=== PATIENT | female | born 1975 | race Caucasian/White ===

== ENCOUNTER 2022-02-17 10:44 | Inpatient (IN) | payer BC ==
[~2022-02-17] VITALS: Ht 167.6 cm; Wt 64.4 kg
[2022-02-17] MEDS ORDERED: VALS40TA12 PO (11:07)
[2022-02-17] MEDS ORDERED: CHLORDIAZEPOXIDE HCL 25 MG CAPSULE ONE (11:12)
[2022-02-17] MEDS ORDERED: LORAZEPAM INJ 2 MG/ML VIAL ONE (11:12)
[2022-02-17 11:24] LABS: BASOPHILS % (AUTO) 0.5 % (0.0-2.0); EOSINOPHILS % (AUTO) 0.5 % (0.0-6.0); HEMATOCRIT 45 % (33-45); HEMOGLOBIN 15.1 g/dL (11.5-14.8); LYMPHOCYTES # (AUTO) 1.2 K/uL (0.8-4.8); MEAN CORPUSCULAR HGB CONC 34 g/dl (31.0-36.0); MEAN CORPUSCULAR VOLUME 109 fL (82-100); MONOCYTES # (AUTO) 0.9 K/uL (0.1-1.30); MONOCYTES % (AUTO) 18.2 % (2.0-12.0); NEUTROPHILS # (AUTO) 2.7 K/uL (1.8-8.9); NEUTROPHILS % (AUTO) 55.8 % (43.0-81.0); PLATELET COUNT (AUTO) 170 K/uL (150-450); WHITE BLOOD COUNT (AUTO) 4.8 K/uL (4.3-11.0)
[2022-02-17] MEDS ORDERED: IV NS 0.9% 1,000 ML IV ONE (11:30)
[2022-02-17] MEDS ORDERED: CHLORDIAZEPOXIDE HCL 25 MG CAPSULE PO ONE (11:30)
[2022-02-17] MEDS ORDERED: LORAZEPAM INJ 2 MG/ML VIAL IV ONE (11:30)
--- NOTE | 2022-02-17 11:35 | NUR ---
IV LINE ESTABLISHED ON R HAND #20.
--- NOTE | 2022-02-17 11:38 | NUR ---
PT UNABLE TO PROVIDE URINE AT THIS TIME.
--- NOTE | 2022-02-17 11:45 | NUR ---
CALLED RADIOLOGY TO PICKUP PT FOR CT
[2022-02-17 11:50] LABS: CALCIUM, SERUM 9.6 mg/dL (8.5-10.1); CARBON DIOXIDE 22 mmol/L (21-32); CHLORIDE 95 mmol/L (98-107); CREATININE 1.1 mg/dL (0.6-1.3); GLUCOSE 205 mg/dL (74-106); POTASSIUM 3.2 mmol/L (3.5-5.1); SODIUM SERUM 137 mmol/L (136-145); UREA NITROGEN, BLOOD 4 mg/dL (7-18)
--- NOTE | 2022-02-17 11:51 | NUR ---
PT TAKEN TO RADIOLOGY
[2022-02-17 11:58] LABS: ALANINE AMINOTRANSFERASE 132 U/L (12-78); ALCOHOL, BLOOD < 3 mg/dL (0-0); ALKALINE PHOSPHATASE 108 U/L (46-116); ASPARTATE AMINOTRANSFERASE 264 U/L (15-37); BILIRUBIN,DIRECT 0.6 mg/dL (0.0-0.2); BILIRUBIN,TOTAL 1.8 mg/dL (0.2-1.0); TOTAL PROTEIN, SERUM 8.1 g/dL (6.4-8.2)
--- NOTE | 2022-02-17 12:02 | NUR ---
PT RETURNED FROM RADIOLOGY
--- NOTE | 2022-02-17 12:09 | NUR ---
TECH AT BEDSIDE FOR EKG
--- NOTE | 2022-02-17 12:16 | NUR ---
COVID SWAB COLLECTED AND SENT TO LAB
[2022-02-17] MEDS ORDERED: POTASSIUM CHLORIDE 20 MEQ TAB.PRT.SR PO ONE ×2 (12:30→13:23)
[2022-02-17] MEDS ORDERED: ALBU18HF2 IH (12:49)
[2022-02-17] MEDS ORDERED: ACET-868 PO (12:49)
[2022-02-17] MEDS ORDERED: COLC0.6C3 PO (12:49)
[2022-02-17 13:22] LABS: BILIRUBIN,URINE NEGATIVE (NEGATIVE); COLOR,URINE YELLOW (YELLOW); LEUKOCYTE ESTERASE ,URINE NEGATIVE (NEGATIVE); NITRITE, URINE NEGATIVE (NEGATIVE); PH,URINE 7.5 (5.0-8.0); PROTEIN,URINE 100 mg/dl (NEGATIVE); UGLUCOSE NEGATIVE (NEGATIVE); UROBILINOGEN,URINE 0.2 EU/dL (0.2)
[2022-02-17] MEDS ORDERED: Magnesium 1GM/D5W 100ML PREMIX 200 ML IV ONE (13:23)
[2022-02-17] MEDS: Magnesium 1GM/D5W 100ML PREMIX 100 ML IV SCH ×2 (13:30→14:27)
--- NOTE | 2022-02-17 13:30 | NUR ---
MAGNESIUM IV BAG#1 ADMINISTERED, CURRENTLY INFUSING.
[2022-02-17 14:21] LABS: BACTERIA,URINE None seen /HPF (None Seen); SQUAMOUS EPITHELIAL CELL,UR Rare /HPF (None Seen); WBC,URINE NONE SEEN /HPF (0-3)
--- NOTE | 2022-02-17 14:30 | NUR ---
MAGNESIUM BAG #2 ADMINISTERED, CURRENTLY INFUSING
--- NOTE | 2022-02-17 14:40 | NUR ---
ANTONELLA 315-1 Addendum: 02/17/22 at 1441 by SUELLEN 315-2 [place]
--- NOTE | 2022-02-17 14:42 | NUR ---
MANOLO BAIRD, WILL CALL BACK FOR REPORT.
--- NOTE | 2022-02-17 15:06 | NUR ---
PT REPORT GIVEN TO MANOLO BAIRD
[2022-02-17] MEDS ORDERED: COLCHICINE 0.6 MG TABLET PO PRN (15:30)
[2022-02-17] MEDS ORDERED: MAGNESIUM HYDROXIDE 30 ML UDC PO PRN (15:30)
[2022-02-17] MEDS ORDERED: ACETAMINOPHEN 325 MG TABLET PO PRN (15:30)
[2022-02-17] MEDS ORDERED: Z GUARD REMEDY 4 OZ OINT TP PRN (15:30)
[2022-02-17] MEDS ORDERED: Folic acid 1 MG in IV D5W 50 ML IV SCH (15:30)
[2022-02-17] MEDS ORDERED: MAG HYDROX/AL HYDROX/SIMETH 30 ML UDC PO PRN (15:30)
[2022-02-17] MEDS ORDERED: Thiamine 100 MG in IV D5W 50 ML IV SCH (15:30)
[2022-02-17] MEDS ORDERED: ONDANSETRON HCL/PF 4 MG/2 ML VIAL IVP PRN (15:30)
--- NOTE | 2022-02-17 15:52 | NUR ---
PT TRANSFERRED TO UNIT VIA FRANCESCO ACLS PROTOCOL. WARM HANDOFF GIVEN TO RN ASSIGNED.
--- NOTE | 2022-02-17 16:00 | NUR ---
DIRECTOR LOSS PREVENTIONMERCURY CELL CLEANER NOTES: RECEIVED PT VIA GURNEY FROM ER STAFF. OBSERVED PT AMBULATED TO BED. PT IS ALERT/ORIENTED X4; ABLE TO VERBALIZE NEEDS. ON RA TOLERATING WELL, NO S/S OF SOB OR ACUTE DISTRESS AT THE MOMENT. VS WNL - BP- 139/99, HR- 100, RR- 20, O2 SAT - 96%. TELE MONITOR ATTACHED, READING SINUS TACH 101. IV ACCESS NOTED @ L HAND # 22, SL, PATENT AND FLUSHING WELL. PT ORIENTED TO UNIT AND STAFF. SAFETY MEASURES AND SEIZURE PRECAUTION IN PLACE. TABLE AND CALL LIGHT WITHIN REACH. ENCOURAGE PT TO USE CALL LIGHT FOR ASSISTANCE WITH AMBULATING, PT AGREED; WILL CONT WITH PLAN OF CARE THROUGHOUT SHIFT.
[2022-02-17] MEDS: FOLIC ACID 1 MG TABLET PO SCH (17:12)
[2022-02-17] MEDS: LORAZEPAM INJ 2 MG/ML VIAL IV SCH (17:12)
[2022-02-17] MEDS: THIAMINE HCL 100 MG TABLET PO SCH (17:12)
[2022-02-17] MEDS: IV NS 0.9% 1,000 ML IV PRN (18:58)
--- NOTE | 2022-02-17 19:30 | NUR ---
RN OPENING NOTE PATIENT AWAKE IN BED. A/OX4. NO S/S OF DISTRESS, BREATHING WITHOUT DIFFICULTY ON ROOM AIR. R-HAND #20 INTACT AND PATENT W/ NS 75ML/HR. TELE READS ST 106 (PATIENT'S CURRENT BASELINE). SAFETY MEASURES IN PLACE: BED LOCKED AND IN LOWEST POSITION, RAILS UP X2, CALL LOVETT WITHIN REACH. WILL CONTINUE TO MONITOR PATIENT.
[2022-02-17 20:00] VITALS: BP 150/104
--- NOTE | 2022-02-17 20:02 | NUR ---
ARMORER TECHNICIAN CLOSING NOTES: PT ASLEEP, EASILY ROUSED. NO S/S OF SOB AND ACUTE DISTRESS NOTED. TELE MONITOR READING SINUS TACHY 104BPM. IVF STARTED- NS @ 75ML/HR. IV ACCESS AT R HAND # 22, PATENT.SAFETY MEASURES AND SEIZURE PRECAUTIONS IN PLACE, CALL LIGHT AND TABLE WITHIN REACH ENDORSED TO PM SHIFT.
[2022-02-17 22:19] LABS: BAND % (MANUAL) 1 % (0.0-5.0); EOSINOPHILS % (MANUAL) 1 % (0-4); LYMPHOCYTES % (MANUAL) 23 % (16-48); MONOCYTES % (MANUAL) 17 % (0-11.0); NEUTROPHILS % (MANUAL) 58 (42-76)
[2022-02-18] VITALS: BP 144/99
--- NOTE | 2022-02-18 01:54 | NUR ---
RN NOTE PATIENT, DUE TO THE WAY SHE WAS SLEEPING IN BED, HAD HER IV DISLODGED. ALL COMPONENTS ACCOUNTED FOR - CATH INCLUDED. PRESSURE DRESSING APPLIED. NEW IV SUCCESSFULLY INSERTED LAC #20. IVF RESUMED. PATIENT STABLE; WILL CONTINUE TO MONITOR PATIENT.
[2022-02-18 04:00] VITALS: BP 129/99
[2022-02-18 06:56] LABS: BASOPHILS % (AUTO) 0.5 % (0.0-2.0); EOSINOPHILS % (AUTO) 2.6 % (0.0-6.0); HEMATOCRIT 40 % (33-45); HEMOGLOBIN 13.5 g/dL (11.5-14.8); LYMPHOCYTES # (AUTO) 1.6 K/uL (0.8-4.8); LYMPHOCYTES % (AUTO) 30.9 % (20.0-44.0); MEAN CORPUSCULAR HGB CONC 34 g/dl (31.0-36.0); MEAN CORPUSCULAR VOLUME 109 fL (82-100); MONOCYTES # (AUTO) 0.7 K/uL (0.1-1.30); MONOCYTES % (AUTO) 13.7 % (2.0-12.0); NEUTROPHILS # (AUTO) 2.6 K/uL (1.8-8.9); NEUTROPHILS % (AUTO) 52.3 % (43.0-81.0); PLATELET COUNT (AUTO) 132 K/uL (150-450); RED BLOOD CELL COUNT(AUTO) 3.66 MIL/uL (4.0-5.2); WHITE BLOOD COUNT (AUTO) 5.1 K/uL (4.3-11.0)
--- NOTE | 2022-02-18 07:27 | NUR ---
RN CLOSING NOTE PATIENT ASLEEP IN BED. A/OX4. NO S/S OF DISTRESS, BREATHING WITHOUT DIFFICULTY ON ROOM AIR. LAC #20 INTACT AND PATENT W/ NS 75ML/HR. TELE READS SR 89. SAFETY MEASURES IN PLACE: BED LOCKED IN PLACE AND AT LOWEST POSITION, RAILS UP X2, CALL LOVETT WITHIN REACH. WILL ENDORSE TO NEXT SHIFT FOR ALEC.
--- NOTE | 2022-02-18 07:30 | NUR ---
RN Receiving Report. Patient AOx4, able to express her own concerns. Patient is sitting up states she is feeling better. Patient with multiple face bruises states she fell on her face. Patient shows no signs of distress or discomfort. Introduced myself and discussed plan of care with patient, patient agrees. All safety precautions taken, call light and table within reach, bed at lowest position.
[2022-02-18 07:44] LABS: ALBUMIN 3.3 g/dL (3.4-5.0); BILIRUBIN,TOTAL 1.4 mg/dL (0.2-1.0); CALCIUM, SERUM 8.9 mg/dL (8.5-10.1); CREATININE 0.8 mg/dL (0.6-1.3); MAGNESIUM 2.1 mg/dL (1.8-2.4); PHOSPHORUS 2.7 mg/dL (2.5-4.9); POTASSIUM 3.4 mmol/L (3.5-5.1); TOTAL PROTEIN, SERUM 6.8 g/dL (6.4-8.2)
[2022-02-18] MEDS: THIAMINE HCL 100 MG TABLET PO SCH (08:36)
[2022-02-18] MEDS: LORAZEPAM INJ 2 MG/ML VIAL IV SCH ×2 (08:36→16:14)
[2022-02-18] MEDS: LOSARTAN POTASSIUM 25 MG TABLET PO SCH (08:36)
[2022-02-18] MEDS: FOLIC ACID 1 MG TABLET PO SCH (08:36)
[2022-02-18] MEDS ORDERED: POTASSIUM CHLORIDE 20 MEQ TAB.PRT.SR PO SCH (09:00)
[2022-02-18 09:03] VITALS: BP 169/108
[2022-02-18 13:18] LABS: BAND % (MANUAL) 7 % (0.0-5.0); EOSINOPHILS % (MANUAL) 1 % (0-4); LYMPHOCYTES % (MANUAL) 35 % (16-48); MONOCYTES % (MANUAL) 12 % (0-11.0); NEUTROPHILS % (MANUAL) 45 (42-76)
[2022-02-18 13:42] VITALS: BP 150/98
--- NOTE | 2022-02-18 14:36 | NUR ---
SS CONSULT REQUESTED FOR ALCOHOL USE DISORDER, SW will follow up at a later time.
[2022-02-18 16:07] VITALS: BP 140/94
--- NOTE | 2022-02-18 17:00 | NUR ---
SS note: SW was notified by CM that the pt. stated she has an adult son diagnosed with Autism at home alone and SW met with the pt. to discuss her son's safety. Per pt., her son is an adult and he is very high functioning and completely independent. SW offered to call friend or police to do wellness check and pt. reiterated that it is not needed. Pt. states she is texting with him and he has food at home and is safe to be alone. Noted.
--- NOTE | 2022-02-18 17:00 | NUR ---
SS consult: SS Consult requested for alcohol use disorder. The pt. is a 46-year-old female patient who came in for seizure at home witnessed by family. Upon SS consult, the pt. is Alert & Oriented x 4 and makes good eye contact. The pt. appears well-groomed with depressed mood & flat affect. Pt.s speech is WNL. Pt. remained calm & cooperative throughout interview. Pt. denies SI/HI and denies hallucinations. Pt. denies any previous diagnosis of mental illness. LES explored pt.s living situation. Patient states she lives at home [[id number] [facility] [address]; [phone]] with her adult son. SW explored pt.s drug & ETOH use. Pt. states she was having 2-3 mixed drinks with liquor daily. Pt. states she stopped drinking alcohol cold turkey and her daughter called the paramedics after she witnessed the pt. having a seizure in which she fell and hit her face causing bruising in both eyes and chin. Pt. denes drug use. LSE provided psychoeducation on alcohol dependence and offered referrals to rehab and pt. states she was interested in attending AA meetings if she cannot do it alone. Pt. stated she independent with ambulation and all her ADLs. Pt. states since she stopped drinking she has been feeling unbalance in her feet and has relayed this to the MD. LES explored pt.s support system. Pt. states her family are her support system and she is currently employed. Plan: Per pt. she would like to return back home [[address] [address] [facility] [address]; [phone]] when ready to discharge. LES provided pt. wit the following addiction resources and the pt. accepted them: ADDICTION RESOURCES For Drugs and Alcohol [facility] sober living Referrals For Rehabilitation once sober Address:[address] [place] [address] [facility] Rehabilitation Program [address] [place] [address] Detox/residential [facility] Substance Abuse Helpline ([facility]) Outpatient, residential treatment, recovery support for youth/adults [facility] www.[facility].Z[facility]Pay [facility] Teen programs for drug/alcohol education and support Graciela Serna [place]. Program for adults, sliding scale provides support and education [facility] www.Tweet CategoryArena Pharmaceuticalsation.org [place]; Detox/residential treatment programs; transition to sober living [facility] www.cri-help.org [place]; Outpatient and residential treatment programs; transition to sober living [facility] TEL: [phone] [facility] [place] [facility] Paulette Ramos; Outpatient education and supportive programs for teens and adults [facility] www.[facility].org [facility]; Residential treatment and work program for females only [facility] www.[facility].org [place]: Outpatient/residential treatment program for teens and young adults [facility] www.[facility].org [facility] Detox, inpatient, outpatient for adults and youth [facility]. [place]; Outpatient programs and referrals to community residential programs. Alcoholics Anonymous -SFV information and meeting and scheduleswww.aa-intergroup.org Wg-Iljt-Gcuxpik https://al-anon.org/ Reserve support groups for family of alcoholics. Marijuana Anonymous www.madistrict6.org -SFV listing of meetings Narcotics Anonymous www.na.org SOBER LIVING RESOURCES [facility] www.soberhousing.net A non-profit agency that provides resources to recovery and sober living homes throughout [facility] Sober Living Homes: A Work in ProgressPavan Ghassan Serna [place] [facility], [place] [facility] So[facility] Living Homes: [facility] [address] [place], [place] [facility] Sober Living Homes: [facility] Counsel[facility]--Outpatient [facility] [address] [place] [address] (Specializes in in-depth psychotherapy for emotional distress: anxiety, depression, interpersonal conflicts, life transitions, childhood abuse) [facility] [address] [place] [address] (Assist with solving problem marital difficulties, separation & divorce, aging parents, & grief, chronic & terminal illness) [facility] [address] [place] [address] (Deal with loss & grief, anxiety, marital difficulties) Homebound/Mental Health Services [address], [address] [place] [address] (Provide in-home mental services to people who are incapable of leaving their homes) [facility]eds of the Elderly Senior Service/Resource Center [address] [place] [address] [facility] [address] [place], [place] [id number] Mental Health Services [facility] [address] [place] [address] Services: Outpatient therapy for children, teens, young adults, adults, older adults, and families; Psychiatric services, medication support Psychiatric Outpatient Services [facility] Partial Hospitalization and Intensive Outpatient Program (Managed Care and [place] Only)[address] [address] [facility]. [facility] [phone] [facility] Partial Hospitalization and Outpatient [id number] [place], [place] [phone] PAULETTE ALISA [facility] Health Center [id number] [place], [place] [phone] [facility] Richard Partial Hospitalization and Outpatient Eitvhsg29206 Gladys Hyman, [phone] Crisis and Hotline Telephone Numbers 24-Hour service unless stated [place] Crisis Hotlines: [facility] Mental Health/Crisis Line........[phone] Suicide Prevention Center (24 Hours).......[phone] Suicide Prevention Crisis Center.......[phone] (24 Hours) Assaults Against Women Hotline.........927.984.7095 (24 Hours -- [facility]) Women and Children Crisis [facility]...........[phone] (24 Hours) Child Abuse Hotline............575.404.7234 [facility] Childrens Services [facility] (24 Hours)..........[phone] Alcoholics Anonymous (24 Hours)..........[phone] Cocaine Anonymous (24 Hours)............782.235.7769 Narcotics Anonymous (24 Hours)..........[phone] [address] Garcia [facility] [address], [place] [address]
[2022-02-18] MEDS ORDERED: LEVETIRACETAM (500MG) 1,000 MG in IV NS 0.9% 100 ML IV ONE (18:30)
--- NOTE | 2022-02-18 18:35 | NUR ---
RN Closing Report. Patient AOx4 able to express her own concerns. Patient remained safe throughout shift, all safety precautions taken. Monitored patient and implemented seizure precautions throughout shift. No incidents to report. Patient states she is normally shake and with elevated heart rate. Educated patient on fall precautions since patient insists in using the restroom. Asked patient to call when she needs to use the restroom for assistance. Call light and table within reach, bed at lowest position. Will endorse report to night nurse for continuity of care.
--- NOTE | 2022-02-18 19:31 | NUR ---
brook rn opening received patient a/ox4. no s/s of apparent distress on room air. denies any pain at this time. ambulates with steady gait. tele monitor reading sinus rhythm with 78bpm. l. hand #20g running ns @75mls/hr. call light within reach and encouraged with the use of call light. safety in place. will continue with the plan of care for patient.
--- NOTE | 2022-02-18 19:45 | NUR ---
noc rn note Keppra hanged late as endorsed by the am shift.
[2022-02-18 20:43] VITALS: BP 148/109
[2022-02-19 00:05] VITALS: BP 136/91
[2022-02-19 00:07] VITALS: BP 136/91
[2022-02-19] MEDS: IV NS 0.9% 1,000 ML IV PRN (03:09)
[2022-02-19 04:32] VITALS: BP 150/97
[2022-02-19 07:02] LABS: CALCIUM, SERUM 8.5 mg/dL (8.5-10.1); CREATININE 0.7 mg/dL (0.6-1.3); POTASSIUM 3.4 mmol/L (3.5-5.1)
--- NOTE | 2022-02-19 07:07 | NUR ---
noc rn closing note patient in bed sitting and eating snacks. no s/s of apparent distress on room air. denies pain at this time. tele monitor reading sinus with 83bpm. all needs attended. all scheduled medications administered. safety kept in place the whole shift. will endorse to morning shift rn for continuity of care.
--- NOTE | 2022-02-19 07:15 | NUR ---
ELECTRIC DISTRIBUTION CHECKER OPENING NOTE PATIENT SITTING ON TOILET, A/O X 3, ABLE TO MAKE NEEDS KNOWN, TOLERATING WELL ON ROOM AIR WITH NO S/S RESPIRATORY DISTRESS. NO COMPLAINTS OF PAIN OR DISCOMFORT AT THIS TIME. TELE MONITOR DISCONNECTED AT THIS TIME, WILL REATTACH. SAFETY MEASURES IN PLACE: BED IN LOWEST LOCKED POSITION, SIDE RAILS UP X 2, CALL LIGHT WITHIN REACH. WILL CONTINUE TO MONITOR. Addendum: 02/19/22 at 0759 by NANCI DEL VALLE RN L AC #[address] WITH NS INFUSING @ 75 ML/HR
[2022-02-19 08:39] VITALS: BP 156/96
[2022-02-19] MEDS ORDERED: LEVE250T2 PO (08:53)
[2022-02-19] MEDS: FOLIC ACID 1 MG TABLET PO SCH (08:55)
[2022-02-19] MEDS: LOSARTAN POTASSIUM 25 MG TABLET PO SCH (08:55)
[2022-02-19] MEDS: THIAMINE HCL 100 MG TABLET PO SCH (08:55)
[2022-02-19] MEDS: LORAZEPAM INJ 2 MG/ML VIAL IV SCH (08:56)
[2022-02-19] MEDS ORDERED: LEVETIRACETAM (250 MG) 250 MG TABLET PO SCH (09:00)
[2022-02-19] MEDS ORDERED: POTASSIUM CHLORIDE 20 MEQ TAB.PRT.SR PO ONE (09:00)
[2022-02-19 12:00] VITALS: BP 136/98
--- NOTE | 2022-02-19 13:30 | NUR ---
NEEDLE LOOM TENDERWASH OIL PUMP OPERATOR HELPER NOTES PATIENT MADE AWARE OF MD DISCHARGE ORDERS AND INSTRUCTIONS. PATIENT VERBALIZED UNDERSTANDING OF MD DISCHARGE INSTRUCTIONS AND SIGNED MD DISCHARGE INSTRUCTIONS SHEET. PATIENT ALSO VERBALIZED POSSESSION OF ALL BELONGINGS AND SIGNED BELONGINGS LIST. IV LINE AND ID BAND REMOVED. TELE MONITOR REMOVED. PATIENT AMBULATED OFF OF UNIT ACCOMPANIED BY SELF.
== END 2022-02-19 14:00 | disposition home or self-care (01) | DRG 101 ==
LOC: ER 10:46 → TELE 15:22
PROVIDERS: ADMIT Internal Medicine; ATTEND Internal Medicine
DX: G40.509 Epileptic seizures related to external causes, not intractable, without status epilepticus (principal); F10.139 Alcohol abuse with withdrawal, unspecified; E87.6 Hypokalemia; E83.42 Hypomagnesemia; M10.9 Gout, unspecified; D69.6 Thrombocytopenia, unspecified; Y90.0 Blood alcohol level of less than 20 mg/100 ml; Z20.822 Contact with and (suspected) exposure to COVID-19; W19.XXXA Unspecified fall, initial encounter; Y92.9 Unspecified place or not applicable; S00.83XA Contusion of other part of head, initial encounter; Z79.51 Long term (current) use of inhaled steroids; I10 Essential (primary) hypertension; Z79.899 Other long term (current) drug therapy
CPT/HCPCS: 36415; 70450-TC; 70486-TC; 72125-TC; 73610-TC; 80048-TC; 80053-TC; 80076-TC; 81001; 83735-TC; 84100-TC; 84703-TC; 85025-TC; 87081-TC; C9803; G0378; G0480; J1953; J2060; J3475; J7030

== ENCOUNTER 2022-08-10 20:27 | Emergency (ER) | payer BC ==
[~2022-08-10] VITALS: Ht 167.6 cm; Wt 64.4 kg
[~2022-08-10 20:27] MED LIST: ACET-868 PO; ALBU18HF2 IH; COLC0.6C3 PO; LEVE250T2 PO; VALS40TA12 PO
--- NOTE | 2022-08-10 20:33 | NUR ---
PT BIBRA C/O "BEING SICK" X WEEKS. PER EMS, PT HAD SEIZURE DURING TRANSPORT. PT HAS HX OF SEIZURES AND IS POST ICTAL. PT AWAKE AND SPEAKING AAXO4 BREATHING EVENLY AND UNLABORED. PT HAS SEIZURE PRECAUTIONS AND ATTACHED TO MONITOR AND POX. WILL CONTINUE TO MONITOR.
--- NOTE | 2022-08-10 20:38 | NUR ---
BLOOD DRAWN AND SENT TO LAB
[2022-08-10] MEDS ORDERED: LEVETIRACETAM (500MG) 500 MG/5 ML VIAL IV ONE (20:48)
[2022-08-10] MEDS: LEVETIRACETAM (500MG) 1,000 MG in IV NS 0.9% 100 ML IV SCH (20:58)
[2022-08-10] MEDS: IV NS 0.9% 1,000 ML BAG IV ONE (20:58)
[2022-08-10 22:19] VITALS: BP 120/78
--- NOTE | 2022-08-10 22:19 | NUR ---
IV removed. Catheter intact and site benign. Pressure and 4x4 applied to site. No bleeding noted.Patient discharged to home in stable condition. Written and verbal after care instructions given. Patient verbalizes understanding of instruction.
== END 2022-08-10 22:19 | disposition home or self-care (01) ==
LOC: ER 20:28
DX: G43.909 Migraine, unspecified, not intractable, without status migrainosus (principal); I10 Essential (primary) hypertension; Z79.899 Other long term (current) drug therapy
CPT/HCPCS: 99284; 96365; 82962; J1953

== ENCOUNTER 2023-02-11 15:41 | Emergency (ER) | payer BC ==
[~2023-02-11] VITALS: Ht 167.6 cm; Wt 61.2 kg
[2023-02-11] MEDS ORDERED: LEVETIRACETAM (500MG) 1,000 MG in IV NS 0.9% 90 ML IV SCH (16:30)
[2023-02-11] MEDS ORDERED: PHENYTOIN EXTENDED RELEASE 100 MG CAPSULE PO ONE (16:30)
[2023-02-11 16:57] LABS: BASOPHILS % (AUTO) 0.3 % (0.0-2.0); EOSINOPHILS % (AUTO) 0.7 % (0.0-6.0); HEMATOCRIT 44 % (33-45); LYMPHOCYTES # (AUTO) 0.8 K/uL (0.8-4.8); LYMPHOCYTES % (AUTO) 13.9 % (20.0-44.0); MEAN CORPUSCULAR HEMOGLOBIN 34 PG (26.0-33.0); MEAN CORPUSCULAR HGB CONC 34 g/dl (31.0-36.0); MEAN CORPUSCULAR VOLUME 100 fL (82-100); MONOCYTES # (AUTO) 0.6 K/uL (0.1-1.30); MONOCYTES % (AUTO) 10.6 % (2.0-12.0); NEUTROPHILS # (AUTO) 4.4 K/uL (1.8-8.9); NEUTROPHILS % (AUTO) 74.5 % (43.0-81.0); PLATELET COUNT (AUTO) 145 K/uL (150-450); RED BLOOD CELL COUNT(AUTO) 4.37 MIL/uL (4.0-5.2); RED CELL DISTRIBUTION WIDTH 14.9 % (11.5-15.0); WHITE BLOOD COUNT (AUTO) 5.8 K/uL (4.3-11.0)
[2023-02-11 17:05] LABS: CALCIUM, SERUM 9.8 mg/dL (8.5-10.1); CREATININE 0.8 mg/dL (0.6-1.3); POTASSIUM 3.1 mmol/L (3.5-5.1)
[2023-02-11] MEDS ORDERED: IV NS 0.9% 1,000 ML BAG IV ONE (17:30)
[2023-02-11] MEDS ORDERED: VALS40TA12 PO (17:33)
[2023-02-11] MEDS ORDERED: LEVE250T2 PO (17:33)
[2023-02-11] MEDS ORDERED: AZIT1PAC PO (17:34)
[2023-02-11 21:28] VITALS: BP 142/95; TEMP 98.1; O2SAT 96
== END 2023-02-11 21:28 | disposition home or self-care (01) ==
LOC: ER 15:41
DX: R56.9 Unspecified convulsions (principal); E87.6 Hypokalemia; J32.9 Chronic sinusitis, unspecified; I10 Essential (primary) hypertension
CPT/HCPCS: 99285; 96365; 70450; 93005; 85025; 80048; 36415; 84484; J7030 ×2; J1953

== ENCOUNTER 2023-05-25 12:33 | Emergency (ER) | payer BC ==
[~2023-05-25] VITALS: Ht 170.2 cm; Wt 65.8 kg
[~2023-05-25 12:33] MED LIST changes: +AZIT1PAC PO
[2023-05-25] MEDS ORDERED: VALSARTAN 40 MG TABLET PO STA (14:32)
[2023-05-25] MEDS ORDERED: LEVE500T9 PO (14:44)
[2023-05-25] MEDS ORDERED: VALS40TA12 PO (14:44)
[2023-05-25 14:53] VITALS: BP 169/99; TEMP 98.2; O2SAT 98
[2023-05-25] MEDS ORDERED: LEVETIRACETAM (250 MG) 250 MG TABLET PO ONE (15:00)
== END 2023-05-25 14:54 | disposition home or self-care (01) ==
LOC: ER 12:45
DX: G40.909 Epilepsy, unspecified, not intractable, without status epilepticus (principal); Z76.0 Encounter for issue of repeat prescription; I10 Essential (primary) hypertension; R51.9 Headache, unspecified; Z79.899 Other long term (current) drug therapy
CPT/HCPCS: 99281; A4223

== ENCOUNTER 2023-06-02 16:26 | Emergency (ER) | payer BC ==
[~2023-06-02] VITALS: Ht 170.2 cm; Wt 68.0 kg
[~2023-06-02 16:26] MED LIST changes: +LEVE500T9 PO
[2023-06-02 16:32] VITALS: TEMP 98.5
[2023-06-02] MEDS ORDERED: ASPIRIN 325 MG TABLET PO ONE (17:00)
[2023-06-02] MEDS ORDERED: NITROGLYCERIN 0.4 MG/TAB BOTTLE SL ONE (17:00)
[2023-06-02 17:27] LABS: BASOPHILS # (AUTO) 0.1 K/uL (0.0-0.2); BASOPHILS % (AUTO) 0.7 % (0.0-2.0); EOSINOPHILS # (AUTO) 0.1 K/uL (0.0-0.7); EOSINOPHILS % (AUTO) 1.2 % (0.0-6.0); HEMATOCRIT 43 % (33-45); HEMOGLOBIN 14.9 g/dL (11.5-14.8); LYMPHOCYTES # (AUTO) 3.6 K/uL (0.8-4.8); LYMPHOCYTES % (AUTO) 45.1 % (20.0-44.0); MEAN CORPUSCULAR HEMOGLOBIN 33 PG (26.0-33.0); MEAN CORPUSCULAR HGB CONC 34 g/dl (31.0-36.0); MEAN CORPUSCULAR VOLUME 95 fL (82-100); MONOCYTES # (AUTO) 0.7 K/uL (0.1-1.30); NEUTROPHILS # (AUTO) 3.6 K/uL (1.8-8.9); PLATELET COUNT (AUTO) 277 K/uL (150-450); RED BLOOD CELL COUNT(AUTO) 4.59 MIL/uL (4.0-5.2); RED CELL DISTRIBUTION WIDTH 12.2 % (11.5-15.0); WHITE BLOOD COUNT (AUTO) 8.1 K/uL (4.3-11.0)
[2023-06-02 17:38] LABS: CALCIUM, SERUM 9.4 mg/dL (8.5-10.1); CARBON DIOXIDE 24 mmol/L (21-32); CHLORIDE 101 mmol/L (98-107); CREATININE 0.8 mg/dL (0.6-1.3); GLUCOSE 88 mg/dL (74-106); POTASSIUM 3.4 mmol/L (3.5-5.1); SODIUM SERUM 137 mmol/L (136-145); UREA NITROGEN, BLOOD 12 mg/dL (7-18)
[2023-06-02] MEDS ORDERED: ASPIRIN 325 MG TABLET ONE (17:42)
[2023-06-02] MEDS ORDERED: NITROGLYCERIN 0.4 MG/TAB BOTTLE ONE (17:42)
[2023-06-02 17:51] LABS: NT-PRO BNP 77 pg/mL (0-125)
[2023-06-02 17:55] LABS: THYROID STIMULATING HORMONE 3.333 uIU/mL (0.358-3.74)
[2023-06-02 18:29] VITALS: BP 135/85; O2SAT 99
== END 2023-06-02 18:29 | disposition home or self-care (01) ==
LOC: ER 16:32
DX: R07.89 Other chest pain (principal); I10 Essential (primary) hypertension; F41.9 Anxiety disorder, unspecified; Z79.899 Other long term (current) drug therapy
CPT/HCPCS: 36415; 71045-TC; 80048-TC; 83735-TC; 83880; 84439-TC; 84443-TC; 84484-TC; 85025-TC; 85378-TC

== ENCOUNTER 2025-02-25 14:43 | Emergency (ER) | payer BC, OTHER ==
[~2025-02-25] VITALS: Ht 170.2 cm; Wt 70.3 kg
[2025-02-25 15:50] VITALS: TEMP 98.3
[2025-02-25 16:43] LABS: PLATELET COUNT (AUTO) 311 K/uL (150-450); RED BLOOD CELL COUNT(AUTO) 4.49 MIL/uL (4.0-5.2); RED CELL DISTRIBUTION WIDTH 12.8 % (11.5-15.0); WHITE BLOOD COUNT (AUTO) 6.3 K/uL (4.3-11.0)
[2025-02-25 16:50] LABS: CALCIUM, SERUM 8.5 mg/dL (8.5-10.1); CREATININE 1.0 mg/dL (0.6-1.3); SODIUM SERUM 141.0 mmol/L (136-145); UREA NITROGEN, BLOOD 19.0 mg/dL (7-18)
[2025-02-25 16:55] LABS: INR 1.08 (0.91-1.10)
[2025-02-25 16:57] LABS: ALCOHOL, BLOOD 320.0 mg/dL (0-10); ASPARTATE AMINOTRANSFERASE 25.0 U/L (15-37); TOTAL PROTEIN, SERUM 7.3 g/dL (6.4-8.2)
[2025-02-25] MEDS: LEVETIRACETAM (500MG) 1,000 MG in IV NS 0.9% 90 ML IV SCH (17:05)
[2025-02-25 17:44] LABS: AMPHETAMINE, URINE NEGATIVE (NEGATIVE); BARBITURATE, URINE NEGATIVE (NEGATIVE); BENZODIAZEPINE, URINE NEGATIVE (NEGATIVE); CANNABINOID, URINE NEGATIVE (NEGATIVE); COCCAINE, URINE NEGATIVE (NEGATIVE); OPIATE, URINE NEGATIVE (NEGATIVE)
[2025-02-25 17:47] LABS: APPEARANCE,URINE CLEAR (CLEAR); BLOOD, URINE Moderate Ery/uL (NEGATIVE); LEUKOCYTE ESTERASE ,URINE Small (NEGATIVE); NITRITE, URINE POSITIVE (NEGATIVE); UGLUCOSE Negative (NEGATIVE)
[2025-02-25 17:48] LABS: ADD URINE CULTURE YES; SQUAMOUS EPITHELIAL CELL,UR Few /HPF (None Seen)
[2025-02-25 19:37] VITALS: BP 152/95; O2SAT 99
== END 2025-02-25 19:34 | disposition home or self-care (01) ==
LOC: ER 14:43
DX: F10.129 Alcohol abuse with intoxication, unspecified (principal); I10 Essential (primary) hypertension; G40.909 Epilepsy, unspecified, not intractable, without status epilepticus; Z79.899 Other long term (current) drug therapy; Z86.2 Personal history of diseases of the blood and blood-forming organs and certain disorders involving the immune mechanism; Y90.8 Blood alcohol level of 240 mg/100 ml or more
CPT/HCPCS: 99285; 96365; 93005; 71045; 70450; 85025; 80048; 87086; 80076; 81001; 36415; 84443; 85730; 82962; 80320; 80307; J7030; J1953; 87186-TC; G0480